=== PATIENT | female | born 1945 | race Caucasian/White ===

== ENCOUNTER → 2016-11-24 | Outpatient (CLI) | payer MEDICARE, MEDICAID ==
[~2016-11-24] MED LIST: ALEN70TA47 PO; ASPI-983 PO; CALC-927 PO; CHOL10003 PO; FENO54TA PO; GABA-486 PO; GLIM4TAB PO; MULT-35 PO; PANT20TA3 PO; ROSU10TA24 PO; SAXA5TAB PO; SERT25TA5 PO; SIMV10TA3 PO; SITA100T12 PO; TRAM50TA2 PO
--- NOTE | 2016-11-24 17:36 | Diagnostic Imaging Report ---
PROCEDURE: CT orbit without. TECHNIQUE: Multiple contiguous axial images were obtained through the facial bones without the use of intravenous contrast. INDICATION: Right eye swelling. FINDINGS: Paranasal sinuses are clear. Globes appear normal. Orbits appear normal. There are no pathologic masses or fluid collections. There are no facial bone fractures seen. IMPRESSION: Unremarkable CT of the orbits. Dictated by: Dictated on workstation # [id number]
== END ==
LOC: RAD 16:47
PROVIDERS: ATTEND Optometrist
DX: H57.8 Other specified disorders of eye and adnexa (principal)
CPT/HCPCS: 70480

== ENCOUNTER → 2017-03-17 | Outpatient (CLI) | payer MEDICARE, MEDICAID ==
[2017-03-17 08:24] LABS: BASOPHILS # (AUTO) 0.1 10^3/uL (0.0-0.1); BASOPHILS % (AUTO) 2 % (0-10); EOSINOPHILS # (AUTO) 0.2 10^3/uL (0.0-0.3); EOSINOPHILS % (AUTO) 3 % (0-10); LYMPHOCYTES # (AUTO) 1.7 X 10^3 (1.0-4.0); LYMPHOCYTES % (AUTO) 23 % (12-44); MEAN CORPUSCULAR HEMOGLOBIN 29 PG (25-34); MEAN CORPUSCULAR HGB CONC 32 G/DL (32-36); MEAN CORPUSCULAR VOLUME 88 FL (80-99); MEAN PLATELET VOLUME 11.7 FL (7.4-10.4); MONOCYTES # (AUTO) 0.7 X 10^3 (0.0-1.0); MONOCYTES % (AUTO) 9 % (0-12); NEUTROPHILS # (AUTO) 4.6 X 10^3 (1.8-7.8); NEUTROPHILS % (AUTO) 63 % (42-75); PLATELET COUNT 321 10^3/uL (130-400); RED BLOOD COUNT 5.32 10^6/uL (4.35-5.85); RED CELL DISTRIBUTION WIDTH 14.4 % (10.0-14.5); WHITE BLOOD COUNT 7.4 10^3/uL (4.3-11.0)
[2017-03-17 08:50] LABS: ALANINE AMINOTRANSFERASE 51 U/L (0-55); ALBUMIN 4.1 GM/DL (3.2-4.5); ANION GAP 7 MMOL/L (5-14); ASPARTATE AMINO TRANSFERASE 35 U/L (5-34); BILIRUBIN,TOTAL 0.6 MG/DL (0.1-1.0); BLOOD UREA NITROGEN 14 MG/DL (7-18); BUN/CREATININE RATIO 19; CALCIUM 10.1 MG/DL (8.5-10.1); CARBON DIOXIDE 28 MMOL/L (21-32); CHLORIDE 108 MMOL/L (98-107); CHOLESTEROL 279 MG/DL (< 200); CREATININE SERUM 0.74 MG/DL (0.60-1.30); DIRECT LDL 208 MG/DL (1-129); GFR ESTIMATED > 60; GLUCOSE 166 MG/DL (70-105); SODIUM 143 MMOL/L (135-145); TOTAL PROTEIN 7.5 GM/DL (6.4-8.2); TRIGLYCERIDES 218 MG/DL (<150); VLDL CHOLESTEROL 44 MG/DL (5-40)
== END ==
LOC: LAB 07:26
PROVIDERS: ATTEND Family Medicine
DX: E11.9 Type 2 diabetes mellitus without complications (principal); E78.2 Mixed hyperlipidemia
CPT/HCPCS: 36415; 80053; 80061; 83036; 85025

== ENCOUNTER → 2017-05-05 | Outpatient (CLI) | payer MEDICARE, MEDICAID ==
--- NOTE | 2017-05-05 12:31 | Diagnostic Imaging Report ---
PROCEDURE: MRI right joint lower extremity without contrast. TECHNIQUE: Multiplanar, multisequence non contrast-enhanced MRI of the right lower extremity was accomplished. INDICATION: Right hip pain. COMPARISON: None available. FINDINGS: No fracture or osteonecrosis of the proximal right femur. No hip effusion. Multifocal full-thickness chondral loss throughout the hip is characterized predominantly by subcortical cystic change in the posterior humeral head in the anterior aspect of the acetabulum. Additionally, a ring of osteophytes around femoral head. Evaluation of the acetabular labrum is limited without intraarticular contrast. Allowing for this, no paralabral cyst. There is likely degenerative macerated tearing of the acetabular labrum. The right iliopsoas, gluteus medius and minimus and proximal hamstring complexes are normal. No abnormality of the right adductor musculature. No peritrochanteric fluid collection to indicate bursitis. A large [id number] imaging of the pelvis was performed for comparison purposes. This demonstrates multifocal full-thickness chondral loss within the left hip as well. No evidence of pelvic insufficiency fracture. No osteonecrosis or fracture of the proximal left femur. IMPRESSION: 1. Moderate osteoarthritis of the right hip with multifocal full-thickness chondromalacia. 2. No myotendinous abnormality about the right hip to explain patient's pain. 3. No trochanteric bursitis. Dictated by: Dictated on workstation # [id number]
== END ==
LOC: RAD 09:35
PROVIDERS: ATTEND Nurse Practitioner Family
DX: M16.11 Unilateral primary osteoarthritis, right hip (principal)
CPT/HCPCS: 73721

== ENCOUNTER → 2017-10-15 | Outpatient (CLI) | payer MEDICARE, MEDICAID ==
[~2017-10-15] MED LIST changes: -ROSU10TA24 PO; +ROSU10TA26 PO
[2017-10-15 16:57] LABS: ALBUMIN 4.2 GM/DL (3.2-4.5); BILIRUBIN,DIRECT 0.1 MG/DL (0.0-0.3); BILIRUBIN,INDIRECT 0.2 MG/DL; BILIRUBIN,TOTAL 0.3 MG/DL (0.1-1.0); TOTAL PROTEIN 7.4 GM/DL (6.4-8.2)
== END ==
LOC: LAB 16:20
PROVIDERS: ATTEND Podiatrist Foot & Ankle Surgery
DX: B35.1 Tinea unguium (principal)
CPT/HCPCS: 36415; 80076

== ENCOUNTER 2018-03-08 06:06 | Outpatient (CLI) | payer MEDICARE, MEDICAID ==
[~2018-03-08] VITALS: Ht 157.5 cm; Wt 68.0 kg
[~2018-03-08 06:06] MED LIST changes: -ROSU10TA26 PO; +ROSU10TA27 PO
[2018-03-08] MEDS ORDERED: L.AC1CAP6 PO (14:10)
[2018-03-08] MEDS ORDERED: METF500T5 PO ×2 (14:10)
[2018-03-08] MEDS ORDERED: ATOR10TA66 PO (14:10)
== END 2018-03-08 14:22 ==
LOC: PREOP 06:06
PROVIDERS: ATTEND Surgery
DX: Z01.818 Encounter for other preprocedural examination (principal)

== ENCOUNTER 2018-03-15 08:14 | Day surgery (SDC) | payer MEDICARE, MEDICAID ==
[~2018-03-15] VITALS: Ht 157.5 cm; Wt 68.0 kg
[~2018-03-15 08:14] MED LIST changes: +ATOR10TA66 PO; +L.AC1CAP6 PO; +METF500T5 PO
[2018-03-15 08:20] VITALS: BP 167/86
--- NOTE | 2018-03-15 08:28 | Progress Note-Pre Operative ---
Pre-Operative Progress Note H&P Reviewed The H&P was reviewed, patient examined and no changes noted. Date Seen by Provider: Mar 15, 2018 Time Seen by Provider: : Date H&P Reviewed: Mar 15, 2018 Time H&P Reviewed: : Pre-Operative Diagnosis: screening colonoscopy INGRID SANTACRUZ DO Mar 15, 2018 08:28
[2018-03-15] MEDS ORDERED: D5 LR IV SOLUTION 1,000 ML IV SCH (08:45)
[2018-03-15] MEDS ORDERED: LACTATED RINGERS 1,000 ML IV ONE (08:46)
[2018-03-15] MEDS ORDERED: LACTATED RINGERS 1,000 ML IV STA (08:49)
[2018-03-15] MEDS ORDERED: PROPOFOL INJECTION 50 ML IV ONE (09:46)
[2018-03-15] MEDS ORDERED: MIDAZOLAM 2 MG/2 ML (VERSED) VIAL ONE (09:46)
--- NOTE | 2018-03-15 10:48 | Anesthesia-General Post-Op ---
MAC Patient Condition Mental Status/LOC: Same as Preop Cardiovascular: Satisfactory Nausea/Vomiting: Absent Respiratory: Satisfactory Pain: Controlled Complications: Absent Post Op Complications Complications None Follow Up Care/Instructions Patient Instructions None needed. Anesthesiology Discharge Order Discharge Order Patient is doing well, no complaints, stable vital signs, no apparent adverse anesthesia problems. No complications reported per nursing. ANN NUÑEZ CRNA Mar 15, 2018 10:48
--- NOTE | 2018-03-15 10:52 | Discharge Inst-Simple/Standard ---
Discharge Inst-Standard Patient Instructions/Follow Up Plan of Care/Instructions/FU: repeat colonoscopy in 10 year unless family history of colon cancer 5 years. If any issues before that be seen at that time. Activity as Tolerated: Yes Discharge Diet: Regular Diet INGRID SANTACRUZ DO Mar 15, 2018 10:51
--- NOTE | 2018-03-15 10:54 | Progress Note-Post Operative ---
Post-Operative Progess Note Surgeon (s)/Washing Machine Operator (s) Surgeon INGRID SANTACRUZ DO Washing Machine Operator: na Pre-Operative Diagnosis screening colonoscopy Post-Operative Diagnosis normal colon Procedure & Operative Findings Date of Procedure 03/15/18 Procedure Performed/Findings colonoscopy Anesthesia Type per sewing machine adjuster Estimated Blood Loss Estimated blood loss (mL): none Specimens/Packing Specimens Removed na INGRID SANTACRUZ DO Mar 15, 2018 10:54
[2018-03-15 11:05] VITALS: BP 145/66
[2018-03-15 11:28] VITALS: BP 157/69
[2018-03-15 11:30] VITALS: BP 157/69
--- NOTE | 2018-03-15 21:44 | OPERATIVE REPORT ---
DATE OF SERVICE: 03/15/2018 PREOPERATIVE DIAGNOSIS: Screening colonoscopy. POSTOPERATIVE DIAGNOSIS: Normal colon. PROCEDURE: Colonoscopy. SURGEON: Ingrid Arias DO ANESTHESIA: Per SLABBER. ESTIMATED BLOOD LOSS: None. COMPLICATIONS: None. INDICATIONS: The patient is a 72-year-old female needing screening colonoscopy. She understands risks and benefits of procedure and wished to proceed with procedure. Consent was signed in the chart. DESCRIPTION OF PROCEDURE: The patient was taken to the endoscopy suite, placed in the left lateral recumbent position. Timeout was performed. Digital rectal exam was performed. There were no palpable polyps, mass or ulcerations. The scope was inserted in the rectum, advanced all the way to the cecum with minimal difficulty. Prep was adequate. Scope was then slowly retracted back. There were no polyps, mass or ulcerations within the cecum, ascending, transverse, descending and sigmoid colon. Once in the rectum, scope was also retroflexed noting some slight hemorrhoidal disease. Scope was returned to its normal position, slowly withdrawn until completely removed. The patient tolerated the procedure well without any complications. She was taken to recovery room in stable condition. RECOMMENDATIONS: The patient will need repeat colonoscopy in 10 years unless family history of colon cancer, which will then be in 5 years. If she has any problems prior to that, she should be reevaluated at that time. Job ID: [id number] DocumentID: [id number] Dictated Date: 03/15/2018 10:56:12 Gun Barrel Finisher Date: 03/15/2018 15:50:41 Dictated By: INGRID ARIAS DO
== END 2018-03-15 11:30 | disposition home or self-care (01) ==
LOC: ENDO 08:14
PROVIDERS: ATTEND Surgery
DX: Z12.11 Encounter for screening for malignant neoplasm of colon (principal); Z86.010 Personal history of colon polyps; E11.9 Type 2 diabetes mellitus without complications; Z79.82 Long term (current) use of aspirin; Z79.84 Long term (current) use of oral hypoglycemic drugs

== ENCOUNTER 2019-09-26 09:22 | Emergency (ER) | payer MEDICARE, MEDICAID ==
[~2019-09-26] VITALS: Ht 157 cm; Wt 70.0 kg
[~2019-09-26 09:22] MED LIST changes: -ALEN70TA47 PO; +ALEN70TA5 PO; -GLIM4TAB PO; +GLIM4TAB3 PO; +METF-397 PO; -METF500T5 PO; -ROSU10TA27 PO; +ROSU10TA28 PO; +SIMV10TA26 PO; -SIMV10TA3 PO; -TRAM50TA2 PO; +TRM50T PO
--- NOTE | 2019-09-26 09:49 | ED Abdominal Pain ---
General Chief Complaint: Abdominal/GI Problems Stated Complaint: DEHYDRATION Source of Information: Patient Exam Limitations: No Limitations History of Present Illness Date Seen by Provider: Sep 26, 2019 Time Seen by Provider: 09:23 Initial Comments Here by EMS with report of diarrhea overnight and concerns of dehydration. Patient apparently had diarrhea 2-3 days ago and was doing a little better but then had several episodes of diarrhea overnight. She felt weak and called her insurance nurse line who recommended she go to the emergency department. EMS was summoned. Vital signs okay with mildly positive orthostatic findings with slight increase in heart rate with standing. Denies blood in her urine or stool. Has left lower quadrant abdominal pain that is intermittent but much worse over the last few days. Timing/Duration: 2-3 Days, Changing Over Time, Getting Worse, Intermittent Severity/Quality: Moderate, Aching Location: LLQ Radiation: No Radiation Activities at Onset: None Modifying Factors: Improves With Defecating; Worsens With Movement Associated Symptoms: Back Pain (chronic); No Chest Pain, No Fever/Chills, No Nausea/Vomiting, No Shortness of Air; Weakness Allergies and Home Medications Allergies Coded Allergies: Iodinated Contrast- Oral and IV Dye (Verified Allergy, Unknown, 03/15/18) codeine (Verified Allergy, Unknown, 03/15/18) metformin (Verified Allergy, Unknown, 03/15/18) Home Medications Alendronate Sodium 70 Mg Tablet, 70 MG PO Mo, (Reported) Aspirin 81 Mg Tablet.dr, 81 MG PO HS, (Reported) Atorvastatin Calcium 10 Mg Tablet, 10 MG PO HS, (Reported) Calcium Carb/Mag Ox/Zinc Sulf 1 Each Tablet, 1 TAB PO HS, (Reported) Cholecalciferol (Vitamin D3) 1,000 Unit Tablet, 1,000 UNIT PO HS, (Reported) Gabapentin 100 Mg Capsule, 100 MG PO BID, (Reported) Glimepiride 4 Mg Tablet, 4 MG PO DAILY, (Reported) L.acidoph & Paracasei,B.lactis 1 Each Capsule, 1 EACH PO DAILY, (Reported) Metformin HCl 500 Mg Tablet, 1,000 MG PO AM, (Reported) Metformin HCl 500 Mg Tablet, 500 MG PO PM, (Reported) Multivitamin 1 Each Tablet, 1 TAB PO HS, (Reported) Pantoprazole Sodium 20 Mg Tablet.dr, 20 MG PO BID, (Reported) Saxagliptin HCl 5 Mg Tablet, 5 MG PO DAILY, (Reported) Sertraline HCl 25 Mg Tablet, 25 MG PO BID, (Reported) Patient Home Medication List Home Medication List Reviewed: Yes Review of Systems Review of Systems Constitutional: see HPI; No chills, No fever EENTM: No Symptoms Reported Respiratory: No Symptoms Reported Cardiovascular: No Symptoms Reported Gastrointestinal: See HPI Genitourinary: No Symptoms Reported Musculoskeletal: see HPI Skin: no symptoms reported Psychiatric/Neurological: No Symptoms Reported All Other Systems Reviewed Negative Unless Noted: Yes Past Fkpspmk-Zhkpmm-Ghytlu Hx Past Med/Social Hx: Reviewed Nursing Past Med/Soc Hx Patient Social History Alcohol Use: Denies Use Recreational Drug Use: No Smoking Status: Never a Smoker Recent Hopitalizations: No Immunizations Up To Date Date of Pneumonia Vaccine: May 01, 2014 Seasonal Allergies Seasonal Allergies: Yes Past Medical History Surgeries: Yes Hysterectomy, Orthopedic Respiratory: No Cardiac: Yes High Cholesterol, Hypertension Neurological: No Reproductive Disorders: No Sexually Transmitted Disease: No HIV/AIDS: No Gastrointestinal: Yes Gastroesophageal Reflux Musculoskeletal: Yes Chronic Back Pain Endocrine: Yes Diabetes, Non-Insulin dep Psychosocial: Yes Adverse Reaction/Blood Tranf: No Family Medical History No Pertinent Family Hx Physical Exam Vital Signs Vital Signs - First Documented 09/26/19 09:22 Temp 36.3 Pulse 88 Resp 22 B/P (MAP) 145/75 (98) Pulse Ox 96 O2 Delivery Nasal Cannula Capillary Refill : Height/Weight/BMI Height: 5'2.00" Weight: 150lbs. 0.0oz. 68.354906gi; 27.4 BMI Method: General Appearance: WD/WN, no apparent distress HEENT: PERRL/EOMI, pharynx normal Neck: full range of motion, supple Respiratory: lungs clear, normal breath sounds Cardiovascular: regular rate, rhythm, no murmur Gastrointestinal: normal bowel sounds, soft, tenderness (left lower quadrant) Extremities: non-tender, normal inspection, no pedal edema Back: normal inspection, no CVA tenderness Neurologic/Psychiatric: alert, oriented x 3 Skin: normal color, warm/dry Progress/Results/Core Measures Results/Orders Lab Results Laboratory Tests Test 09/26/19 09:40 09/26/19 09:49 Range/Units Urine Color YELLOW Urine Clarity CLEAR Urine pH 7.0 5-9 Urine Specific [place] 1.015 L 1.016-1.022 Urine Protein NEGATIVE NEGATIVE Urine Glucose (UA) NEGATIVE NEGATIVE Urine Ketones NEGATIVE NEGATIVE Urine Nitrite NEGATIVE NEGATIVE Urine Bilirubin NEGATIVE NEGATIVE Urine Urobilinogen 0.2 < = 1.0 MG/DL Urine Leukocyte Esterase 2+ H NEGATIVE Urine RBC (Auto) NEGATIVE NEGATIVE Urine RBC RARE /HPF Urine WBC 2-5 /HPF Urine Squamous Epithelial Cells RARE /HPF Urine Crystals NONE /LPF Urine Bacteria TRACE /HPF Urine Casts NONE /LPF Urine Mucus NEGATIVE /LPF Urine Culture Indicated YES White Blood Count 7.9 4.3-11.0 10^3/uL Red Blood Count 4.34 L 4.35-5.85 10^6/uL Hemoglobin 12.3 11.5-16.0 G/DL Hematocrit 38 35-52 % Mean Corpuscular Volume 86 80-99 FL Mean Corpuscular Hemoglobin 28 25-34 PG Mean Corpuscular Hemoglobin Concent 33 32-36 G/DL Red Cell Distribution Width 14.4 10.0-14.5 % Platelet Count 299 130-400 10^3/uL Mean Platelet Volume 11.4 H 7.4-10.4 FL Neutrophils (%) (Auto) 69 42-75 % Lymphocytes (%) (Auto) 19 12-44 % Monocytes (%) (Auto) 8 0-12 % Eosinophils (%) (Auto) 3 0-10 % Basophils (%) (Auto) 1 0-10 % Neutrophils # (Auto) 5.5 1.8-7.8 X 10^3 Lymphocytes # (Auto) 1.5 1.0-4.0 X 10^3 Monocytes # (Auto) 0.7 0.0-1.0 X 10^3 Eosinophils # (Auto) 0.2 0.0-0.3 10^3/uL Basophils # (Auto) 0.1 0.0-0.1 10^3/uL Sodium Level 143 135-145 MMOL/L Potassium Level 3.6 3.6-5.0 MMOL/L Chloride Level 110 H 98-107 MMOL/L Carbon Dioxide Level 27 21-32 MMOL/L Anion Gap 6 5-14 MMOL/L Blood Urea Nitrogen 13 7-18 MG/DL Creatinine 0.82 0.60-1.30 MG/DL Estimat Glomerular Filtration Rate > 60 BUN/Creatinine Ratio 16 Glucose Level 184 H 70-105 MG/DL Calcium Level 9.7 8.5-10.1 MG/DL Corrected Calcium 9.8 8.5-10.1 MG/DL Magnesium Level 1.1 *L 1.6-2.4 MG/DL Total Bilirubin 0.5 0.1-1.0 MG/DL Aspartate Amino Transf (AST/SGOT) 16 5-34 U/L Alanine Aminotransferase (ALT/SGPT) 19 0-55 U/L Alkaline Phosphatase 79 40-136 U/L C-Reactive Protein High Sensitivity 0.23 0.00-0.50 MG/DL Total Protein 6.9 6.4-8.2 GM/DL Albumin 3.9 3.2-4.5 GM/DL Lipase 31 8-78 U/L My Orders Orders - RAVINDRA LEDBETTER MD Cbc With Automated Diff (09/26/19 09:35) Comprehensive Metabolic Panel (09/26/19 09:35) Hs C Reactive Protein (09/26/19 09:35) Lipase (09/26/19 09:35) Magnesium (09/26/19 09:35) Ua Culture If Indicated (09/26/19 09:35) Ct Abdomen/Pelvis Wo (09/26/19 09:35) Urine Culture (09/26/19 09:40) Magnesium 1 Gm/100 Ml Ivpb (Magnesium Padron (09/26/19 11:00) Magnesium 1 Gm/100 Ml Ivpb (Magnesium Padron (09/26/19 11:01) Medications Given in ED Current Medications Medications Dose Ordered Sig/Hceryl Route Start Time Stop Time Status Last Admin Dose Admin Magnesium Sulfate/ Dextrose 100 ml @ 100 mls/hr ONCE ONCE IV 09/26/19 11:00 09/26/19 11:59 DC 09/26/19 11:14 100 MLS/HR Vital Signs/I&O 09/26/19 09:22 Temp 36.3 Pulse 88 Resp 22 B/P (MAP) 145/75 (98) Pulse Ox 96 O2 Delivery Nasal Cannula Progress Progress Note : Progress Note Seen and evaluated. IV by EMS. Labs, UA and CT abdomen pelvis without contrast ordered. Monitor patient. 1045: Mag noted to be low. Magnesium 1 g IV ordered. Pending CT. Overall doing better. Monitor patient. 1153: Patient overall doing better. Magnesium isn't using currently. CT negative. Tolerating by mouth fluids. Patient was previously on magnesium at stopped it due to diarrhea. She follows with Dr. Vergara and I have instructed her to follow with him this week. I will send a copy of the chart to his office. Will discharge as soon as magnesium complete. Discharge instructions given. Patient verbalize understanding instructions and agreement with plan. Diagnostic Imaging Diagonstic Imaging: CT Plain Films/CT/US/NM/MRI: abdomen, pelvis Comments [facility], [place] NAME: DAVID ALEXANDRA [facility] REC#: [id number] PT STATUS: REG ER : 1945 PHYSICIAN: RAVINDRA LEDBETTER MD ADMIT DATE: 09/26/19/ER Draft Date of Exam:09/26/19 CT ABDOMEN/PELVIS WO PROCEDURE: CT abdomen and pelvis without contrast. TECHNIQUE: Multiple contiguous axial images were obtained through the abdomen and pelvis without the use of intravenous contrast. Auto Exposure Controls were utilized during the CT exam to meet ALARA standards for radiation dose reduction. INDICATION: Diarrhea. Dehydration. COMPARISON: 05/19/2016. FINDINGS: Included portions of the lung bases are clear. CT ABDOMEN: Small hiatal hernia is noted. There are a few scattered colonic diverticula, but no CT evidence of acute diverticulitis. Small bowel loops are nondistended. Normal appendix cannot be adequately identified, but there is no pericecal inflammation. The kidneys, adrenal glands, spleen, pancreas, and liver have an unremarkable noncontrast CT appearance. There is no loculated fluid collection, free fluid, or free air within the abdomen. No abnormal mesenteric or retroperitoneal adenopathy is seen. Moderate scattered calcified aortic and arterial atherosclerosis is noted. Osseous structures show no acute abnormalities. CT PELVIS: Urinary bladder is unopacified and minimally distended. No calculi are seen within the urinary bladder. There is no loculated fluid collection, free fluid, or free air. No abnormal adenopathy is identified. Osseous structures show no acute abnormalities. IMPRESSION: 1. No acute abnormalities are seen within the abdomen or pelvis. 2. Few scattered colonic diverticula, but no CT evidence of acute diverticulitis. Dictated on workstation # [id number] Dict: 09/26/19 1103 Trans: 09/26/19 1109 [id number] Interpreted by: SAFIA MURILLO MD Electronically signed by: Departure Impression Primary Impression: Diarrhea Qualified Codes: R19.7 - Diarrhea, unspecified Additional Impressions: Acute dehydration Hypomagnesemia Disposition: 01 HOME, SELF-CARE Condition: Improved Departure-Patient Inst. Decision time for Depature: 11:53 Referrals: MARVIN VAZQUEZ DO (PCP) Primary Care Physician FIDE REYES APRN (Family) Primary Care Physician Patient Instructions: Acute Abdomen (Belly Pain), Adult (DC), Low Magnesium Level (DC), Dehydration, Adult (DC), Diarrhea in Adolescents and Adults Add. Discharge Instructions: All discharge instructions reviewed with patient and/or family. Voiced understanding. Call today for appointment with your doctor this week. Clearly correlated diet for the next 24 hours and then advance as tolerated. You should consider restart ing magnesium but he may discuss this with her doctor. Return for worse pain, fever, vomiting, weakness, breathing problems or other concerns as needed. Copy Copies To 1: KAL VERGARA MD, TIMOTHY D MD Sep 26, 2019 09:49
[2019-09-26 09:51] LABS: BILIRUBIN,URINE NEGATIVE (NEGATIVE); CLARITY,URINE CLEAR; COLOR,URINE YELLOW; GLUCOSE, URINE (UA) NEGATIVE (NEGATIVE); KETONES,URINE NEGATIVE (NEGATIVE); LEUKOCYTE ESTERASE ,URINE 2+ (NEGATIVE); NITRITE,URINE NEGATIVE (NEGATIVE); PROTEIN,URINE NEGATIVE (NEGATIVE)
[2019-09-26 09:57] LABS: BASOPHILS # (AUTO) 0.1 10^3/uL (0.0-0.1); BASOPHILS % (AUTO) 1 % (0-10); EOSINOPHILS # (AUTO) 0.2 10^3/uL (0.0-0.3); EOSINOPHILS % (AUTO) 3 % (0-10); HEMATOCRIT 38 % (35-52); HEMOGLOBIN 12.3 G/DL (11.5-16.0); LYMPHOCYTES # (AUTO) 1.5 X 10^3 (1.0-4.0); LYMPHOCYTES % (AUTO) 19 % (12-44); MEAN CORPUSCULAR HEMOGLOBIN 28 PG (25-34); MEAN CORPUSCULAR HGB CONC 33 G/DL (32-36); MEAN CORPUSCULAR VOLUME 86 FL (80-99); MEAN PLATELET VOLUME 11.4 FL (7.4-10.4); MONOCYTES # (AUTO) 0.7 X 10^3 (0.0-1.0); MONOCYTES % (AUTO) 8 % (0-12); NEUTROPHILS # (AUTO) 5.5 X 10^3 (1.8-7.8); NEUTROPHILS % (AUTO) 69 % (42-75); PLATELET COUNT 299 10^3/uL (130-400); RED CELL DISTRIBUTION WIDTH 14.4 % (10.0-14.5); WHITE BLOOD COUNT 7.9 10^3/uL (4.3-11.0)
[2019-09-26 10:02] LABS: BACTERIA,URINE TRACE /HPF; RBC,URINE RARE /HPF; SQUAMOUS EPITHELIAL CELL,UR RARE /HPF
[2019-09-26 10:19] LABS: ALANINE AMINOTRANSFERASE 19 U/L (0-55); ALBUMIN 3.9 GM/DL (3.2-4.5); ALKALINE PHOSPHATASE 79 U/L (40-136); BILIRUBIN,TOTAL 0.5 MG/DL (0.1-1.0); BUN/CREATININE RATIO 16; CALCIUM 9.7 MG/DL (8.5-10.1); CARBON DIOXIDE 27 MMOL/L (21-32); CHLORIDE 110 MMOL/L (98-107); CREATININE SERUM 0.82 MG/DL (0.60-1.30); GFR ESTIMATED > 60; GLUCOSE 184 MG/DL (70-105); LIPASE 31 U/L (8-78); POTASSIUM 3.6 MMOL/L (3.6-5.0); SODIUM 143 MMOL/L (135-145); TOTAL PROTEIN 6.9 GM/DL (6.4-8.2)
--- NOTE | 2019-09-26 10:44 | NUR ---
SEE LIST FOR CURRENT MEDS
[2019-09-26 10:47] LABS: MAGNESIUM 1.1 MG/DL (1.6-2.4)
[2019-09-26] MEDS ORDERED: MAGNESIUM 1 GM/100 ML IVPB 100 ML IV ONE ×2 (11:00→11:01)
--- NOTE | 2019-09-26 11:13 | Diagnostic Imaging Report ---
PROCEDURE: CT abdomen and pelvis without contrast. TECHNIQUE: Multiple contiguous axial images were obtained through the abdomen and pelvis without the use of intravenous contrast. Auto Exposure Controls were utilized during the CT exam to meet ALARA standards for radiation dose reduction. INDICATION: Diarrhea. Dehydration. COMPARISON: 05/19/2016. FINDINGS: Included portions of the lung bases are clear. CT ABDOMEN: Small hiatal hernia is noted. There are a few scattered colonic diverticula, but no CT evidence of acute diverticulitis. Small bowel loops are nondistended. Normal appendix cannot be adequately identified, but there is no pericecal inflammation. The kidneys, adrenal glands, spleen, pancreas, and liver have an unremarkable noncontrast CT appearance. There is no loculated fluid collection, free fluid, or free air within the abdomen. No abnormal mesenteric or retroperitoneal adenopathy is seen. Moderate scattered calcified aortic and arterial atherosclerosis is noted. Osseous structures show no acute abnormalities. CT PELVIS: Urinary bladder is unopacified and minimally distended. No calculi are seen within the urinary bladder. There is no loculated fluid collection, free fluid, or free air. No abnormal adenopathy is identified. Osseous structures show no acute abnormalities. IMPRESSION: 1. No acute abnormalities are seen within the abdomen or pelvis. 2. Few scattered colonic diverticula, but no CT evidence of acute diverticulitis. Dictated by: Dictated on workstation # [id number]
[2019-09-26 12:23] VITALS: BP 141/80
== END 2019-09-26 12:23 | disposition home or self-care (01) ==
LOC: EDUNIT# 09:23 → ER 09:24
DX: R19.7 Diarrhea, unspecified (principal); E86.0 Dehydration; E83.42 Hypomagnesemia; I10 Essential (primary) hypertension; E78.00 Pure hypercholesterolemia, unspecified; E11.9 Type 2 diabetes mellitus without complications; K21.9 Gastro-esophageal reflux disease without esophagitis; Z91.041 Radiographic dye allergy status; Z88.5 Allergy status to narcotic agent; Z88.8 Allergy status to other drugs, medicaments and biological substances; Z79.82 Long term (current) use of aspirin; Z79.84 Long term (current) use of oral hypoglycemic drugs
CPT/HCPCS: 36415; 74176; 80053; 81000; 83690; 83735; 85025; 86141; 87077; 87088

== ENCOUNTER → 2019-10-03 | Outpatient (CLI) | payer MEDICARE, MEDICAID ==
[2019-10-03 12:53] LABS: ALANINE AMINOTRANSFERASE 21 U/L (0-55); ALBUMIN 4.3 GM/DL (3.2-4.5); ALKALINE PHOSPHATASE 76 U/L (40-136); BILIRUBIN,TOTAL 0.4 MG/DL (0.1-1.0); BUN/CREATININE RATIO 20; CALCIUM 10.7 MG/DL (8.5-10.1); CARBON DIOXIDE 29 MMOL/L (21-32); CHLORIDE 104 MMOL/L (98-107); CHOLESTEROL 199 MG/DL (< 200); CREATININE SERUM 0.83 MG/DL (0.60-1.30); GFR ESTIMATED > 60; GLUCOSE 111 MG/DL (70-105); HDL CHOLESTEROL 54 MG/DL (40-60); MAGNESIUM 1.4 MG/DL (1.6-2.4); POTASSIUM 3.5 MMOL/L (3.6-5.0); SODIUM 141 MMOL/L (135-145); TOTAL PROTEIN 7.8 GM/DL (6.4-8.2); TRIGLYCERIDES 216 MG/DL (<150); VLDL CHOLESTEROL 43 MG/DL (5-40)
== END ==
LOC: LAB 12:12
PROVIDERS: ATTEND Family Medicine
DX: E11.9 Type 2 diabetes mellitus without complications (principal); E78.5 Hyperlipidemia, unspecified; E83.42 Hypomagnesemia
CPT/HCPCS: 36415; 80053; 80061; 83036; 83735

== ENCOUNTER → 2020-05-24 | Outpatient (CLI) | payer MEDICARE, MEDICAID ==
[~2020-05-24] MED LIST changes: +ASPI-1238 PO; -ASPI-983 PO; -GLIM4TAB3 PO; +GLIM4TAB5 PO; +PANT20TA18 PO; -PANT20TA3 PO
--- NOTE | 2020-05-24 13:42 | Diagnostic Imaging Report ---
INDICATION: Right breast pain and right breast lump. No prior studies are available for comparison. 2-D and 3-D bilateral diagnostic mammography was performed. A BB markers were placed at the area of pain in the inner right breast as well as an area of lump in the inferior right breast. In addition, additional views of the left breast were obtained of an area of density in the lateral left breast. This included rolled CC, spot compression CC and 90 degree lateral views. Scattered fibroglandular densities are identified bilaterally. There is a circumscribed density in the inferior right breast at the area of palpable abnormality. This has benign features and may represent small cyst. No abnormality in the medial right breast is seen at the area of pain. Left breast additional views are unremarkable. There is no mass or suspicious microcalcifications. Axillae are unremarkable. IMPRESSION: BI-RADS 0 1. Unremarkable left breast. 2. Circumscribed benign appearing nodule inferior right breast in the area of palpable abnormality. Directed sonographic interrogation of this area as well as the area of pain in the medial right breast is recommended and will be performed today. ACR BI-RADS Category 0: Incomplete. (Needs additional imaging evaluation). Result letter will be mailed to the patient. Note: At least 10% of breast cancer is not imaged by mammography. Dictated by: Dictated on workstation # [id number]
--- NOTE | 2020-05-24 15:46 | Diagnostic Imaging Report ---
INDICATION: Right breast pain and right breast lump. CORRELATION is made with diagnostic mammogram earlier same day. Sonographic interrogation of the area of pain in the right breast was performed. This corresponds to the 2-3 o'clock location of the right breast. No sonographic abnormality is identified. No solid or cystic mass is identified. In addition, area of palpable lump in the inferior right breast was evaluated. There is a circumscribed hypoechoic nodule just below the skin surface measuring 8 mm x 7 mm x 8 mm. This accounts for the palpable and mammographic density and most likely represents a sebaceous cyst. No internal vascularity is seen. IMPRESSION: BI-RADS Category 2. 1. No sonographic abnormality is identified at the area of pain in the medial right breast. 2. Circumscribed hypoechoic nodule 6:30 o'clock location right breast just below the skin surface accounting for the palpable and mammographic abnormality. This most likely represents a sebaceous cyst. ACR BI-RADS Category 2: Benign findings. Result letter will be mailed to the patient. Note: At least 10% of breast cancer is not imaged by mammography. Dictated by: Dictated on workstation # [id number]
== END ==
LOC: RAD 13:15
PROVIDERS: ATTEND Nurse Practitioner
DX: N63.13 Unspecified lump in the right breast, lower outer quadrant (principal)
CPT/HCPCS: 76642; 77066; G0279; 77062

== ENCOUNTER 2020-06-21 05:30 | Outpatient (RCR) | payer MEDICARE, MEDICAID ==
[~2020-06-21] VITALS: Ht 157 cm; Wt 70.0 kg
[~2020-06-21 05:30] MED LIST changes: -ALEN70TA5 PO; +ALEN70TA69 PO; +CLC600T PO; +GLIM2TAB4 PO; +LINA5TAB PO; +MULT-1136 PO; +SERT50TA9 PO
== END 2020-06-21 11:11 | disposition home or self-care (01) ==
LOC: PREOP 05:30
PROVIDERS: ATTEND Surgery
DX: Z01.812 Encounter for preprocedural laboratory examination (principal); K22.70 Barrett's esophagus without dysplasia; R19.5 Other fecal abnormalities; Z20.828 Contact with and (suspected) exposure to other viral communicable diseases
CPT/HCPCS: 87635

== ENCOUNTER 2020-06-25 10:14 | Day surgery (SDC) | payer MEDICARE, MEDICAID ==
[2020-06-25] VITALS (7 sets, daily range): BP systolic 96–139; BP diastolic 53–80
[~2020-06-25] VITALS: Ht 157 cm; Wt 70.0 kg
[2020-06-25] MEDS ORDERED: LACTATED RINGERS 1,000 ML IV ONE (10:22)
[2020-06-25] MEDS ORDERED: LACTATED RINGERS 1,000 ML IV STA (10:24)
[2020-06-25] MEDS ORDERED: HURRICAINE EXT TUBE (BENZOCAINE) XX PRN (10:30)
[2020-06-25] MEDS ORDERED: HURRICAINE EXT TUBE (BENZOCAINE) ONE (11:08)
[2020-06-25] MEDS ORDERED: PROPOFOL INJECTION 50 ML IV ONE ×2 (11:20→11:54)
--- NOTE | 2020-06-25 12:25 | Progress Note-Post Operative ---
Post-Operative Progess Note Surgeon (s)/Radio Engineering Teacher (s) Surgeon INGRID SANTACRUZ DO Radio Engineering Teacher: na Pre-Operative Diagnosis hx orourke's, fecal incontinence Post-Operative Diagnosis hiatal hernia, sigmoid polyp Procedure & Operative Findings Date of Procedure 06/25/20 Procedure Performed/Findings egd c biopsies, colonoscopy c hot bx polpectomy Anesthesia Type per [facility] Estimated Blood Loss Estimated blood loss (mL): none Specimens/Packing Specimens Removed ge, sigmoid polyp INGRID SANTACRUZ DO Jun 25, 2020 12:25
--- NOTE | 2020-06-25 12:26 | Discharge Inst-Simple/Standard ---
Discharge Inst-Standard Patient Instructions/Follow Up Plan of Care/Instructions/FU: 2 weeks Hugo Activity as Tolerated: Yes Discharge Diet: Regular Diet (high fiber) INGRID SANTACRUZ DO Jun 25, 2020 12:26
--- NOTE | 2020-06-25 14:22 | Anesthesia-General Post-Op ---
MAC Patient Condition Mental Status/LOC: Same as Preop Cardiovascular: Satisfactory Nausea/Vomiting: Absent Respiratory: Satisfactory Pain: Controlled Complications: Absent Post Op Complications Complications None Follow Up Care/Instructions Patient Instructions None needed. Anesthesiology Discharge Order Discharge Order Patient was seen after the procedure and she was doing well, no complaints, stable vital signs, no apparent adverse anesthesia problems. REAGAN ARENAS DO Jun 25, 2020 14:22
--- NOTE | 2020-06-25 22:33 | OPERATIVE REPORT ---
DATE OF SERVICE: PREOPERATIVE DIAGNOSES: History of West's, fecal incontinence. POSTOPERATIVE DIAGNOSES: Hiatal hernia, sigmoid polyp. PROCEDURE: EGD with biopsies, colonoscopy with hot biopsy polypectomy. SURGEON: Ingrid Arias DO ANESTHESIA: Per MDA. ESTIMATED BLOOD LOSS: None. COMPLICATIONS: None. INDICATIONS: The patient is a 74-year-old female with history of West's and having fecal incontinence. She understands risks and benefits of procedure and wished to proceed with procedures. Consent was signed in the chart. DESCRIPTION OF PROCEDURE: The patient was taken to the endoscopy suite, placed in left lateral recumbent position. Timeout was performed. Scope was inserted in mouth, down the esophagus, stomach and into the duodenum without difficulty. There were no polyps, masses or ulcerations within the duodenum. Scope was slowly retracted back into the stomach where it was further insufflated. No polyps, masses or ulcerations. Scope was retroflexed noting hiatal hernia, no other pathology. Scope was returned to its normal position, slowly withdrawn to the distal esophagus, very small area suggestive of West's. A 4-quadrant biopsy was obtained. Scope was then slowly retracted back to completely remove noting no other pathology. Digital rectal exam was performed. There was some redundancy of skin consistent at the anus. No palpable polyps, masses or ulcerations. Scope was then inserted in the rectum and advanced all the way to cecum with minimal difficulty. Prep was adequate. Scope was then slowly retracted back. There were no polyps, masses or ulcerations within the cecum, ascending, transverse, descending colon. In the sigmoid colon, a small polyp was present, which hot biopsy polypectomy was performed. Scope was then continuously retracted back into the rectum, where it was also retroflexed noting no other pathology. Scope was returned to its normal position, slowly withdrawn until completely removed. The patient tolerated procedure well without any complications. She was taken to recovery room in stable condition. RECOMMENDATIONS: The patient will try a high fiber diet to see if incontinence improves. The incontinence could be due to the leakage due to the redundancy and skin. We would consider excision. We will discuss these options. We could also try biofeedback. Job ID: [id number] DocumentID: [id number] Dictated Date: 06/25/2020 12:29:13 Outside Plant Technician Date: 06/25/2020 22:33:22 Dictated By: INGRID ARIAS DO
== END 2020-06-25 13:25 | disposition home or self-care (01) ==
LOC: ENDO 10:14
PROVIDERS: ATTEND Surgery
DX: D12.5 Benign neoplasm of sigmoid colon (principal); K21.00 Gastro-esophageal reflux disease with esophagitis, without bleeding; K44.9 Diaphragmatic hernia without obstruction or gangrene; E11.9 Type 2 diabetes mellitus without complications; E78.5 Hyperlipidemia, unspecified; I10 Essential (primary) hypertension; M06.9 Rheumatoid arthritis, unspecified; F32.9 Major depressive disorder, single episode, unspecified; F41.9 Anxiety disorder, unspecified; Z79.84 Long term (current) use of oral hypoglycemic drugs; Z91.041 Radiographic dye allergy status; Z79.899 Other long term (current) drug therapy; Z88.8 Allergy status to other drugs, medicaments and biological substances; Z88.1 Allergy status to other antibiotic agents; Z88.5 Allergy status to narcotic agent
CPT/HCPCS: 82962

== ENCOUNTER → 2020-12-02 | Outpatient (CLI) | payer MEDICARE, MEDICAID ==
[~2020-12-02] MED LIST changes: -ALEN70TA69 PO; +ALEN70TA80 PO; +SERT-412 PO; +SERT-413 PO; -SERT25TA5 PO; -SERT50TA9 PO
== END ==
LOC: LAB 18:15
PROVIDERS: ATTEND Surgery
DX: R19.7 Diarrhea, unspecified (principal)
CPT/HCPCS: 87015; 87045; 87046; 87324; 87328; 87329; 87449; 87493; 87899

== ENCOUNTER 2020-12-13 16:26 | Emergency (ER) | payer MEDICARE, MEDICAID ==
[~2020-12-13] VITALS: Ht 157.5 cm; Wt 71.7 kg
[~2020-12-13 16:26] MED LIST changes: +CALC600T91 PO; -CLC600T PO
--- NOTE | 2020-12-13 16:54 | ED General ---
General Stated Complaint: SEVERAL COVID SYMPTOMS Source of Information: Patient Exam Limitations: No Limitations History of Present Illness Date Seen by Provider: Dec 13, 2020 Time Seen by Provider: 16:35 Initial Comments Patient is a 75-year-old female who presents to the emergency department today with a chief complaint of low-grade fever for the last 3 days and persistent diarrhea. Patient states that she was diagnosed with a colon infection about 3 weeks ago. She states she has persisted in having diarrhea at least once an hour since that time. She states that she feels weak. She states that she was concerned that she would be able to take care of herself at home. She also complains of little sinus congestion with some green nasal secretions and cough in the morning with sneezes. No Covid concerns no Covid contacts that she is aware of. Patient denies any abdominal pain but has a little epigastric discomfort. She states that she has had so much diarrhea that her rectum is bleeding a little bit. She denies burning with urination, dysuria urgency or frequency. Patient states that she called Dr. Arias's office her surgeon who is taking care of her colitis as well as her primary care doctor's office today and they told her that if she was having the low-grade fever that she should come to the emergency room and be evaluated. All other review of systems reviewed and negative except as stated above. Timing/Duration: Constant, Getting Worse (With low-grade fever) Severity: Moderate Associated Systoms: Fever/Chills (Low-grade fever of 99), Malaise Allergies and Home Medications Allergies Coded Allergies: Iodinated Contrast Media (Verified Allergy, Mild, HIVES, 06/18/20) amoxicillin (Verified Allergy, Mild, GI UPSET, 06/18/20) clavulanic acid (Verified Allergy, Mild, GI UPSET, 06/18/20) codeine (Verified Allergy, Mild, N/V, 06/18/20) metformin (Verified Allergy, Mild, GI UPSET, 06/18/20) Home Medications Alendronate Sodium 70 Mg Tablet, 70 MG PO Mo, (Reported) Atorvastatin Calcium 10 Mg Tablet, 10 MG PO HS, (Reported) Calcium Carbonate 600 Mg Tablet, 600 MG PO DAILY, (Reported) Gabapentin 100 Mg Capsule, 100 MG PO BID, (Reported) Glimepiride 2 Mg Tablet, 2 MG PO BID, (Reported) Linagliptin 5 Mg Tablet, 5 MG PO DAILY, (Reported) Metformin HCl 500 Mg Tablet, 1,000 MG PO AM, (Reported) Metformin HCl 500 Mg Tablet, 500 MG PO PM, (Reported) Multivitamin 1 Each Tablet, 1 EACH PO DAILY, (Reported) Pantoprazole Sodium 20 Mg Tablet.dr, 20 MG PO DAILY, (Reported) Sertraline HCl 50 Mg Tablet, 50 MG PO DAILY, (Reported) Patient Home Medication List Home Medication List Reviewed: Yes Review of Systems Review of Systems Constitutional: see HPI, malaise, weakness EENTM: no symptoms reported Respiratory: no symptoms reported Cardiovascular: no symptoms reported Gastrointestinal: diarrhea Genitourinary: no symptoms reported Musculoskeletal: no symptoms reported Skin: no symptoms reported Psychiatric/Neurological: No Symptoms Reported All Other Systems Reviewed Negative Unless Noted: Yes Past Rgryzxb-Pxqwqv-Qrioza Hx Patient Social History 2nd Hand Smoke Exposure: No Recent Hopitalizations: No Immunizations Up To Date Date of Pneumonia Vaccine: May 01, 2015 Seasonal Allergies Seasonal Allergies: No Past Medical History Surgeries: Yes (BACK) Hysterectomy, Orthopedic Respiratory: No Cardiac: Yes High Cholesterol, Hypertension Neurological: No Reproductive Disorders: No Sexually Transmitted Disease: No HIV/AIDS: No Genitourinary: Yes Kidney Stones Gastrointestinal: Yes Gastroesophageal Reflux, Chronic Constipation, Chronic Diarrhea Musculoskeletal: Yes Arthritis, Chronic Back Pain Endocrine: Yes Diabetes, Non-Insulin dep HEENT: Yes (GLASSES) Loss of Vision: Denies Hearing Impairment: Denies Cancer: No Psychosocial: Yes Anxiety, Depression Integumentary: No Blood Disorders: No Adverse Reaction/Blood Tranf: No (N/A) Family Medical History No Pertinent Family Hx Physical Exam Vital Signs Capillary Refill : Height, Weight, BMI Height: 5'2.00" Weight: 150lbs. 0.0oz. [id number]; 28.39 BMI Method: General Appearance: No Apparent Distress, WD/WN Eyes: Bilateral Eye Normal Inspection, Bilateral Eye PERRL, Bilateral Eye EOMI HEENT: PERRL/EOMI Neck: Normal Inspection Respiratory: Lungs Clear, Normal Breath Sounds, No Accessory Muscle Use, No Respiratory Distress Cardiovascular: Regular Rate, Rhythm Gastrointestinal: Normal Bowel Sounds (Normal to hyperactive bowel sounds), Soft, Tenderness (Minimal epigastric tenderness to palpation) Extremity: Normal Inspection, Normal Range of Motion, Non Tender, No Calf Tenderness Neurologic/Psychiatric: Alert, Oriented x3, No Motor/Sensory Deficits Skin: Normal Color, Warm/Dry Progress/Results/Core Measures Suspected Sepsis SIRS Temperature: Pulse: Respiratory Rate: Laboratory Tests 12/13/20 17:00: White Blood Count 9.4 Blood Pressure / Mean: Laboratory Tests 12/13/20 17:00: Creatinine 1.04, Platelet Count 320 Results/Orders Lab Results Laboratory Tests Test 12/13/20 17:00 Range/Units White Blood Count 9.4 4.3-11.0 10^3/uL Red Blood Count 4.67 3.80-5.11 10^6/uL Hemoglobin 13.1 11.5-16.0 g/dL Hematocrit 41 35-52 % Mean Corpuscular Volume 88 80-99 fL Mean Corpuscular Hemoglobin 28 25-34 pg Mean Corpuscular Hemoglobin Concent 32 32-36 g/dL Red Cell Distribution Width 14.0 10.0-14.5 % Platelet Count 320 130-400 10^3/uL Mean Platelet Volume 11.4 9.0-12.2 fL Immature Granulocyte % (Auto) 0 % Neutrophils (%) (Auto) 64 42-75 % Lymphocytes (%) (Auto) 17 12-44 % Monocytes (%) (Auto) 14 H 0-12 % Eosinophils (%) (Auto) 4 0-10 % Basophils (%) (Auto) 1 0-10 % Neutrophils # (Auto) 6.0 1.8-7.8 10^3/uL Lymphocytes # (Auto) 1.6 1.0-4.0 10^3/uL Monocytes # (Auto) 1.3 H 0.0-1.0 10^3/uL Eosinophils # (Auto) 0.4 H 0.0-0.3 10^3/uL Basophils # (Auto) 0.1 0.0-0.1 10^3/uL Immature Granulocyte # (Auto) 0.0 0.0-0.1 10^3/uL Sodium Level 136 135-145 MMOL/L Potassium Level 3.8 3.6-5.0 MMOL/L Chloride Level 101 98-107 MMOL/L Carbon Dioxide Level 23 21-32 MMOL/L Anion Gap 12 5-14 MMOL/L Blood Urea Nitrogen 14 7-18 MG/DL Creatinine 1.04 0.60-1.30 MG/DL Estimat Glomerular Filtration Rate 52 BUN/Creatinine Ratio 13 Glucose Level 211 H 70-105 MG/DL Calcium Level 9.7 8.5-10.1 MG/DL My Orders Orders - CEM VASQUEZ MD Cbc With Automated Diff (12/13/20 17:06) Basic Metabolic Panel (12/13/20 17:06) Chest 1 View, Ap/Pa Only (12/13/20 17:06) Ns Iv 1000 Ml (Sodium Chloride 0.9%) (12/13/20 17:15) Vital Signs/I&O Capillary Refill : Progress Note : Time: 17:52 Progress Note Patient seen and evaluated, 75-year-old fighting C. difficile for the last 3 weeks. On vancomycin daily 4 times a day. Patient evaluation today includes a CBC, BM 7 as well as a chest x-ray. Patient's labs have been reviewed and are unremarkable. Normal electrolytes. Normal chest x-ray. Normal vital signs. Patient is treated in the emergency room with 1 L of normal saline. She is counseled on fluid replacement including Pedialyte Pedialyte mixed with Sprite, Pedialyte mixed with juice. She verbalizes understanding. Patient at this time looks well, nontoxic. recommendations for home. Patient is comfortable with this. She is advised to keep her scheduled follow-up with Dr. Arias and her primary care physician. She is given good return precautions. She verbalized understanding. All questions are sought and answered. Patient is stable for discharge. Diagnostic Imaging Diagonstic Imaging: Xray Plain Films/CT/US/NM/MRI: chest Comments [facility], [place] NAME: DAVID [facility]LEXANDRA [facility] REC#: [id number] PT STATUS: REG ER : 1945 PHYSICIAN: CEM VASQUEZ MD ADMIT DATE: 12/13/20/ER Draft Date of Exam:12/13/20 CHEST 1 VIEW, AP/PA ONLY INDICATION: Cough, congestion and fever. COMPARISON: 06/24/2016. FINDINGS: Some minimal left greater than right linear perihilar scarring, stable from the comparison. No pneumonia, failure, effusion or pneumothorax. Progressive chronic degenerative changes to the right greater than left shoulder and postsurgical changes to the visualized lower thoracic and lumbar spine. No acute appearing abnormality. IMPRESSION: Stable chronic findings in the lungs, progressive osteoarthritis. Dictated on workstation # [id number] Dict: 12/13/201741 Trans: 12/13/201747 PJE [id number] Interpreted by: EBENEZER HESS Electronically signed by: Departure Impression Primary Impression: C. difficile colitis Disposition: HOME, SELF-CARE Condition: Stable Departure-Patient Inst. Decision time for Depature: 17:54 Referrals: MAXIMILIANO HARRIS MD (PCP) Primary Care Physician IVA KEMP APRN (Family) Primary Care Physician Patient Instructions: Antibiotic-Associated Diarrhea (DC) Add. Discharge Instructions: Please drink plenty of fluids to keep well-hydrated. You can drink Pedialyte, Pedialyte mixed with Sprite or juice to help this. Continue your vancomycin daily as prescribed by Dr. Arias. Return to the emergency room if you have worsening diarrhea, fever over 100.4, worsening shortness of breath or any other emergent concerning symptoms. CEM VASQUEZ MD Dec 13, 2020 16:54
[2020-12-13] MEDS ORDERED: NS IV 1000 ML 1,000 ML IV SCH (17:15)
[2020-12-13 17:16] LABS: BASOPHILS # (AUTO) 0.1 10^3/uL (0.0-0.1); BASOPHILS % (AUTO) 1 % (0-10); EOSINOPHILS # (AUTO) 0.4 10^3/uL (0.0-0.3); EOSINOPHILS % (AUTO) 4 % (0-10); HEMATOCRIT 41 % (35-52); HEMOGLOBIN 13.1 g/dL (11.5-16.0); LYMPHOCYTES # (AUTO) 1.6 10^3/uL (1.0-4.0); LYMPHOCYTES % (AUTO) 17 % (12-44); MEAN CORPUSCULAR HEMOGLOBIN 28 pg (25-34); MEAN CORPUSCULAR HGB CONC 32 g/dL (32-36); MEAN CORPUSCULAR VOLUME 88 fL (80-99); MEAN PLATELET VOLUME 11.4 fL (9.0-12.2); MONOCYTES # (AUTO) 1.3 10^3/uL (0.0-1.0); MONOCYTES % (AUTO) 14 % (0-12); NEUTROPHILS % (AUTO) 64 % (42-75); PLATELET COUNT 320 10^3/uL (130-400); WHITE BLOOD COUNT 9.4 10^3/uL (4.3-11.0)
[2020-12-13 17:26] LABS: CALCIUM 9.7 MG/DL (8.5-10.1); CREATININE SERUM 1.04 MG/DL (0.60-1.30); POTASSIUM 3.8 MMOL/L (3.6-5.0)
--- NOTE | 2020-12-13 17:49 | Diagnostic Imaging Report ---
INDICATION: Cough, congestion and fever. COMPARISON: 06/24/2016. FINDINGS: Some minimal left greater than right linear perihilar scarring, stable from the comparison. No pneumonia, failure, effusion or pneumothorax. Progressive chronic degenerative changes to the right greater than left shoulder and postsurgical changes to the visualized lower thoracic and lumbar spine. No acute appearing abnormality. IMPRESSION: Stable chronic findings in the lungs, progressive osteoarthritis. Dictated by: Dictated on workstation # [id number]
[2020-12-13 18:20] VITALS: BP 143/86
== END 2020-12-13 18:20 | disposition home or self-care (01) ==
LOC: EDUNIT# 16:26 → ER 16:27
DX: K52.89 Other specified noninfective gastroenteritis and colitis (principal); I10 Essential (primary) hypertension; E78.00 Pure hypercholesterolemia, unspecified; K21.9 Gastro-esophageal reflux disease without esophagitis; F32.9 Major depressive disorder, single episode, unspecified; F41.9 Anxiety disorder, unspecified; E11.9 Type 2 diabetes mellitus without complications; Z91.041 Radiographic dye allergy status; Z88.5 Allergy status to narcotic agent; Z88.1 Allergy status to other antibiotic agents; Z88.8 Allergy status to other drugs, medicaments and biological substances; Z79.84 Long term (current) use of oral hypoglycemic drugs
CPT/HCPCS: 36415; 71045; 80048; 85025; 99281

== ENCOUNTER → 2021-01-14 | Outpatient (CLI) | payer MEDICARE, MEDICAID ==
[2021-01-14 12:55] LABS: BASOPHILS # (AUTO) 0.1 10^3/uL (0.0-0.1); BASOPHILS % (AUTO) 2 % (0-10); EOSINOPHILS # (AUTO) 0.2 10^3/uL (0.0-0.3); EOSINOPHILS % (AUTO) 3 % (0-10); HEMATOCRIT 42 % (35-52); HEMOGLOBIN 13.6 g/dL (11.5-16.0); LYMPHOCYTES # (AUTO) 1.8 10^3/uL (1.0-4.0); LYMPHOCYTES % (AUTO) 24 % (12-44); MEAN CORPUSCULAR HEMOGLOBIN 28 pg (25-34); MEAN CORPUSCULAR HGB CONC 32 g/dL (32-36); MEAN CORPUSCULAR VOLUME 88 fL (80-99); MEAN PLATELET VOLUME 11.4 fL (9.0-12.2); MONOCYTES # (AUTO) 0.8 10^3/uL (0.0-1.0); MONOCYTES % (AUTO) 10 % (0-12); NEUTROPHILS # (AUTO) 4.7 10^3/uL (1.8-7.8); NEUTROPHILS % (AUTO) 61 % (42-75); PLATELET COUNT 296 10^3/uL (130-400); WHITE BLOOD COUNT 7.6 10^3/uL (4.3-11.0)
[2021-01-14 13:13] LABS: ALBUMIN 4.1 GM/DL (3.2-4.5); BILIRUBIN,TOTAL 0.3 MG/DL (0.1-1.0); CALCIUM 10.2 MG/DL (8.5-10.1); CREATININE SERUM 0.95 MG/DL (0.60-1.30); MAGNESIUM 1.7 MG/DL (1.6-2.4); POTASSIUM 3.8 MMOL/L (3.6-5.0); TOTAL PROTEIN 7.7 GM/DL (6.4-8.2)
--- NOTE | 2021-01-14 15:35 | Diagnostic Imaging Report ---
PROCEDURE: CT abdomen and pelvis without contrast. TECHNIQUE: Multiple contiguous axial images were obtained through the abdomen and pelvis without the use of intravenous contrast. Auto Exposure Controls were utilized during the CT exam to meet ALARA standards for radiation dose reduction. INDICATION: Abdominal pain. COMPARISON: 09/26/2019 FINDINGS: Included portions of lung bases are clear. CT ABDOMEN: Normal appendix cannot be adequately identified, but there is no pericecal inflammation. Small bowel loops are nondistended. There is scattered colonic diverticulosis, but no CT evidence of acute diverticulitis. Kidneys, adrenal glands, spleen, pancreas, and liver have an unremarkable noncontrast CT appearance. There is no loculated fluid collection, free fluid or free air within the abdomen. No abnormal mesenteric or retroperitoneal adenopathy is seen. Osseous structures show age-related degenerative changes and postsurgical changes of prior thoracolumbar fusion. There is lbpy-qn-yeggndes scattered calcified aortic atherosclerosis. CT PELVIS: Urinary bladder is unopacified. No calculi are seen within urinary bladder. There is no loculated fluid collection, free fluid or free air within the pelvis. No abnormal lymph nodes are identified. Osseous structures show no acute abnormalities. IMPRESSION: 1. No acute abnormality is seen within the abdomen or pelvis. 2. Colonic diverticulosis, but no CT evidence of acute diverticulitis. Dictated by: Dictated on workstation # [id number]
== END ==
LOC: LAB 11:42
PROVIDERS: ATTEND Nurse Practitioner
DX: K57.30 Diverticulosis of large intestine without perforation or abscess without bleeding (principal)
CPT/HCPCS: 36415; 74176; 80053; 83735; 85025

== ENCOUNTER → 2021-03-11 | Outpatient (CLI) | payer MEDICARE, MEDICAID ==
--- NOTE | 2021-03-11 10:01 | Diagnostic Imaging Report ---
INDICATION: Postmenopausal screening COMPARISON: Baseline FINDINGS: AP Spine L1-L4: [BMD (g/cm2): NA] [T-Score: NA] [Z-Score: NA] [BMD Previous: NA] [BMD % Change: NA] LT Hip Neck: [BMD (g/cm2): 0.666] [T-Score: -2.7] [Z-Score: -0.8] LT Hip Total: [BMD (g/cm2):0.788] [T-Score:-1.7] [Z-Score: -0.1] [BMD Previous: NA] [BMD % Change: NA] RT Hip Neck: [BMD (g/cm2):0.817] [T-Score:-1.6] [Z-Score:0.2] RT Hip Total: [BMD (g/cm2):0.786] [T-score:-1.8] [Z-Score:-0.1] [BMD Previous:NA] [BMD % Change:NA] *Indicates significant change from prior examination based on 95% confidence level. World Health Organization criteria for BMD interpretation classify patients as Normal (T-score at or above -1.0), Osteopenic (T-score between -1.0 and -2.5) or Osteoporotic (T-score at or below -2.5). LIMITATIONS AND MODIFICATION: None. FRACTURE RISK (FRAX SCORE): The ten year probability of (%): Major Osteoporotic Fracture: [26.5] Hip Fracture: [8.6] IMPRESSION: 1. Osteoporosis. 2. Baseline examination. 3. See below National Osteoporosis Foundation guidelines on when to potentially initiate pharmacologic therapy. Based on the National Osteoporosis Foundation Guidelines, pharmacologic treatment should be initiated in any of the following, unless clinical conditions suggest otherwise: * Any patient with prior fragility fracture of the hip or vertebrae. A spine fracture indicates 5X risk for subsequent spine fracture and 2X risk for subsequent hip fracture. * Osteoporosis (T-score <-2.5). * Postmenopausal women and men age 50 and older with low bone mass/osteopenia (T-score between -1.0 and -2.5) by DXA and 10-year major osteoporotic fracture greater than 20% or a 10-year probability of hip fracture greater than 3%. These fracture risks are supplied above in the FRAX score, if applicable. * Clinician judgement and/or patient preferences may indicate treatment for people with 10-year fracture probabilities above or below these levels. Dictated by: Dictated on workstation # [id number]
== END ==
LOC: RAD 09:30
PROVIDERS: ATTEND Nurse Practitioner
DX: M81.0 Age-related osteoporosis without current pathological fracture (principal); Z78.0 Asymptomatic menopausal state
CPT/HCPCS: 77080

== ENCOUNTER → 2021-04-01 | Outpatient (CLI) | payer MEDICARE, MEDICAID | END | disposition home or self-care (01) | LOC: PREOP 05:42 | PROVIDERS: ATTEND Surgery | DX: Z01.818 Encounter for other preprocedural examination (principal) ==

== ENCOUNTER 2021-10-13 05:28 | Outpatient (RCR) | payer MEDICARE, MEDICAID ==
[~2021-10-13] VITALS: Ht 157.5 cm; Wt 69.5 kg
[~2021-10-13 05:28] MED LIST changes: +LISI5TAB20 PO
== END 2021-10-13 09:30 | disposition home or self-care (01) ==
LOC: PREOP 05:28
PROVIDERS: ATTEND Surgery
DX: Z01.812 Encounter for preprocedural laboratory examination (principal); K21.9 Gastro-esophageal reflux disease without esophagitis; R15.9 Full incontinence of feces; Z20.822 Contact with and (suspected) exposure to COVID-19
CPT/HCPCS: 87636

== ENCOUNTER 2021-10-14 08:17 | Day surgery (SDC) | payer MEDICARE, MEDICAID ==
[~2021-10-14] VITALS: Ht 157.5 cm; Wt 69.5 kg
[2021-10-14] MEDS ORDERED: LACTATED RINGERS 1,000 ML IV STA (08:19)
[2021-10-14] MEDS ORDERED: LACTATED RINGERS 1,000 ML IV ONE (08:20)
[2021-10-14] MEDS ORDERED: HURRICAINE EXT TUBE (BENZOCAINE) XX PRN (08:30)
[2021-10-14 08:35] VITALS: BP 123/71
--- NOTE | 2021-10-14 08:56 | Progress Note-Pre Operative ---
Pre-Operative Progress Note H&P Reviewed The H&P was reviewed, patient examined and no changes noted. Date Seen by Provider: Oct 14, 2021 Time Seen by Provider: 08:56 Date H&P Reviewed: Oct 14, 2021 Time H&P Reviewed: 08:56 Pre-Operative Diagnosis: incontinence of stool, gerd INGRID SANTACRUZ DO Oct 14, 2021 08:56
[2021-10-14] MEDS ORDERED: PROPOFOL INJECTION 50 ML IV ONE (09:22)
--- NOTE | 2021-10-14 10:01 | Progress Note-Post Operative ---
Post-Operative Progess Note Surgeon (s)/Chairman & Ceo (s) Surgeon INGRID SANTACRUZ DO Chairman & Ceo: N/A Pre-Operative Diagnosis incontinence of stool, gerd Post-Operative Diagnosis Hiatal hernia, colon polyps, diverticulosis, minimal prolapse Procedure & Operative Findings Date of Procedure 10/14/21 Procedure Performed/Findings EGD w/ biopsies Colonoscopy w/ hot bx polypectomy x 3 Anesthesia Type per blower and compressor assembler Estimated Blood Loss Estimated blood loss (mL): none Specimens/Packing Specimens Removed antrum, ge, colon polyps INGRID SANTACRUZ DO Oct 14, 2021 10:01
--- NOTE | 2021-10-14 10:03 | Discharge Inst-Simple/Standard ---
Discharge Inst-Standard Patient Instructions/Follow Up Plan of Care/Instructions/FU: 2 weeks Hugo Activity as Tolerated: Yes Discharge Diet: Regular Diet (high fiber) INGRID SANTACRUZ DO Oct 14, 2021 10:03
[2021-10-14 10:05] VITALS: BP 98/54
[2021-10-14 10:30] VITALS: BP 120/72
[2021-10-14 10:32] VITALS: BP 120/72
--- NOTE | 2021-10-14 14:17 | Anesthesia-General Post-Op ---
MAC Patient Condition Mental Status/LOC: Same as Preop Cardiovascular: Satisfactory Nausea/Vomiting: Absent Respiratory: Satisfactory Pain: Controlled Complications: Absent Post Op Complications Complications None Follow Up Care/Instructions Patient Instructions None needed. Anesthesiology Discharge Order Discharge Order Patient is doing well, no complaints, stable vital signs, no apparent adverse anesthesia problems. No complications reported per nursing. MARIANA KAUR CRNA Oct 14, 2021 14:17
--- NOTE | 2021-10-14 15:00 | OPERATIVE REPORT ---
DATE OF SERVICE: 10/14/2021 PREOPERATIVE DIAGNOSES: Incontinence of stool, gastroesophageal reflux disease. POSTOPERATIVE DIAGNOSES: Hiatal hernia, colon polyps, diverticulosis, minimal prolapse. SURGEON: Ingrid Arias DO ANESTHESIA: Per MARINE PAINTER. PROCEDURE: EGD with biopsies, colonoscopy with hot biopsy polypectomy x3. ESTIMATED BLOOD LOSS: None. COMPLICATIONS: None. INDICATIONS: The patient is a 76-year-old female with episodes of incontinence of stool and GERD symptoms. She understands risks and benefits of procedure and wished to proceed. Consent was signed in the chart. DESCRIPTION OF PROCEDURE: The patient was taken to the endoscopy suite, placed in left lateral recumbent position. Timeout was performed. Scope was inserted in mouth, down the esophagus, stomach and into the duodenum without difficulty. There were no polyps, masses or ulcerations within the duodenum. Scope was slowly retracted back into the stomach where it was further insufflated. Biopsy of the antrum was obtained. No polyps, masses or ulcerations. Scope was retroflexed noting hiatal hernia, no other pathology. Scope was returned to its normal position, slowly withdrawn to distal esophagus. Biopsy of the GE junction was obtained. Scope was slowly retracted back noting no other pathology. The patient tolerated the procedure well without any complications. Digital rectal exam was performed. Some very minimal prolapse present with hemorrhoidal disease. No palpable polyps, masses or ulcerations. Scope was inserted in the rectum and advanced all the way to cecum with minimal difficulty. Prep was adequate. Scope was slowly retracted back. No polyps, masses or ulcerations within the cecum. In the ascending colon, a small polyp was present, which hot biopsy polypectomy was performed. Scope was then continuously retracted back. No polyps, masses or ulcerations within the remainder of the ascending and transverse colon. In the descending, two colon polyps were present, which hot biopsy polypectomy was performed. Scope was then continuously retracted back. No polyps, masses or ulcerations within the sigmoid colon, but some minimal amount of diverticulosis present. Scope was continuously retracted back in the rectum, which was also retroflexed noting no other pathology except for the hemorrhoidal disease. Scope was returned to its normal position, slowly withdrawn until completely removed. The patient tolerated the procedure well without any complications. She was taken to recovery room in stable condition. RECOMMENDATIONS: The patient will have repeat colonoscopy in 5 years if benefits outweigh the risks. We will discuss with her about the very minimal prolapse, I do not think there is anything significant. We will consider pelvic floor therapy and would also consider opinion from colorectal surgery. Job ID: [id number] DocumentID: [id number] Dictated Date: 10/14/2021 10:08:16 Cmm Technician Date: 10/14/2021 14:59:03 Dictated By: INGRID ARIAS DO
== END 2021-10-14 10:49 | disposition home or self-care (01) ==
LOC: ENDO 08:17
PROVIDERS: ATTEND Surgery
DX: D12.2 Benign neoplasm of ascending colon (principal); D12.4 Benign neoplasm of descending colon; K57.30 Diverticulosis of large intestine without perforation or abscess without bleeding; K44.9 Diaphragmatic hernia without obstruction or gangrene; K21.9 Gastro-esophageal reflux disease without esophagitis; K64.8 Other hemorrhoids; I10 Essential (primary) hypertension; E11.40 Type 2 diabetes mellitus with diabetic neuropathy, unspecified; E78.00 Pure hypercholesterolemia, unspecified; F41.9 Anxiety disorder, unspecified; F32.A Depression, unspecified; I25.2 Old myocardial infarction; Z79.899 Other long term (current) drug therapy; Z79.84 Long term (current) use of oral hypoglycemic drugs
CPT/HCPCS: 88305

== ENCOUNTER 2022-07-23 18:19 | Emergency (ER) | payer MEDICARE, MEDICAID ==
[~2022-07-23] VITALS: Ht 157.8 cm; Wt 67.1 kg
[2022-07-23] MEDS ORDERED: morphine INJ 10 MG/ML 1ML (SYR OR VIAL) IVP STA ×2 (18:52→19:55)
--- NOTE | 2022-07-23 19:38 | Diagnostic Imaging Report ---
PROCEDURE: CT head and CT cervical spine without contrast. TECHNIQUE: Multiple contiguous axial images were obtained through the brain and cervical spine without the use of intravenous contrast. Sagittal and coronal reformations through the cervical spine were then performed. Auto Exposure Controls were utilized during the CT exam to meet ALARA standards for radiation dose reduction. INDICATION: Fall. Head and neck pain. COMPARISON: 11/24/2016. FINDINGS: CT head: No large acute territorial ischemia, mass, or hemorrhage. No midline shift or mass effect. The ventricles, cortical sulci, and basilar cisterns are patent and unremarkable. The calvarium is intact. The visualized paranasal sinuses are clear. CT cervical spine: No acute fracture or dislocation is seen in the cervical spine. No focal osseous lesions. Vertebral body heights are well-maintained. The craniocervical junction is well-maintained. Mild degenerative changes are seen in the cervical spine with disc osteophyte complexes and uncovertebral arthropathy. Soft tissues of the neck are unremarkable. The included lung apices are clear. IMPRESSION: 1. No hemorrhage or focal intra-axial mass. No CT evidence of large acute territorial ischemia. 2. No acute fracture or dislocation in the cervical spine. Dictated by: Dictated on workstation # [id number]
--- NOTE | 2022-07-23 19:40 | Diagnostic Imaging Report ---
PROCEDURE: CT chest without contrast. TECHNIQUE: Multiple contiguous axial images were obtained through the chest without the use of intravenous contrast. Auto Exposure Controls were utilized during the CT exam to meet ALARA standards for radiation dose reduction. INDICATION: Fall with dyspnea and possible aspiration. Lungs are generally clear apart from mild dependent atelectasis and/or scarring in the subpleural regions. Overall heart size is within normal limits. There is no significant pleural or pericardial fluid. There is mild mural thickening at the distal esophagus which could be related to gastroesophageal reflux. There are mildly displaced fractures involving the right 2nd through 7th ribs. There is no significant associated pleural fluid or thickening. Advanced degenerative findings are present within the shoulders. There is diffuse thoracic spondylosis with thoracolumbar spinal fusion present. IMPRESSION: Multiple right rib fractures involving 2nd through 7th ribs however no pneumothorax or significant hemothorax is identified. There is mural thickening at the distal esophagus possibly on the basis of gastroesophageal reflux. Dictated by: Dictated on workstation # [id number]
--- NOTE | 2022-07-23 19:41 | Diagnostic Imaging Report ---
PROCEDURE: CT thoracic and lumbar spine without contrast. TECHNIQUE: Multiple contiguous axial images were obtained through the thoracic and lumbar spine without the use of intravenous contrast. Sagittal and coronal reformations were then performed. All CT scans use one or more of the following dose optimizing techniques: automated exposure control, MA and/or KvP adjustment based on a patient size and exam type, or iterative reconstruction. INDICATION: Fall. Mid and lower back pain. COMPARISON: 01/14/2021. FINDINGS: No acute fracture or dislocation in the thoracic and lumbar spine. Posterior fusion changes are visualized from T11 to L4. No hardware fracture or loosening. There is generalized osteopenia. No focal osseous lesions are seen. No evidence of acute spinal canal stenosis. The included lungs are clear. The paraspinal soft tissues are unremarkable. IMPRESSION: 1. No acute fracture or dislocation in the thoracic and lumbar spine. 2. Stable posterior fusion from T11 to L4. No hardware fracture or loosening. 3. Generalized osteopenia. Dictated by: Dictated on workstation # [id number]
--- NOTE | 2022-07-23 19:42 | Diagnostic Imaging Report ---
CLINICAL HISTORY: Fall. Right shoulder pain. COMPARISON: None. TECHNIQUE: 3 views of the right shoulder. FINDINGS: There is no acute fracture or dislocation of the right shoulder. Advanced degenerative changes are seen in the right glenohumeral joint with bulky osteophytes, joint space loss, and subchondral sclerosis. Prominent ossified body is seen within the inferior aspect of the right glenohumeral joint. The right humeral head is high riding. The included right chest is clear. IMPRESSION: 1. No acute fracture or dislocation in the right shoulder. 2. 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 Dictated by: Dictated on workstation # [id number]
[2022-07-23] MEDS ORDERED: oxyCODONE/APAP 5/325MG (PERCOCET 5) TABLET PO ONE (20:00)
[2022-07-23] MEDS ORDERED: OXYC1TAB87 PO (20:04)
--- NOTE | 2022-07-23 20:05 | ED Fall/Injury ---
General Chief Complaint: Trauma-Non Activation Stated Complaint: FALL Nursing Triage Note: PT TO RM 2 BY WC WITH COMPLAINT OF FALL. STATES SHE WAS EATING AND FELT SOMETHING GET CAUGHT HER THROAT AND FELT SOA. STATES WENT OUTSIDE TO FIND NEIGHBOR TO CALL FOR HELP AND FELL AGAINST LIGHT POLE. PT DENIES LOC. STATES HIT HER HEAD. AND LEFT UPPER BACK. CRAWLED BACK INTO HER APPARTMENT AND CALLED HER GRANDDAUGHTER. PT IS ALERT AND ORIENTED AT TIME OF TRIAGE. DENIES TAKING BLOOD THINNERS. CCOLLAR PLACED. (RANDOLPH RUIZ APRN) History of Present Illness Date Seen by Provider: Jul 23, 2022 Time Seen by Provider: 18:35 Initial Comments Patient is a 77-year-old female who presents to the emergency department with right-sided shoulder and back pain after she fell and struck her back against a metal light pole. Patient states she was eating and felt like she had something that got caught in her throat causing her to be short of air. She states she "panicked" and while walking lost her balance and fell backwards striking a light pole. She denies any loss of consciousness. States she may have hit the back of her head. She is not on any anticoagulation at this time per her report. Patient is accompanied by her daughter. A c-collar was placed upon her arrival to triage due to the mechanism of injury. Patient denies any focal numbness/weakness or vision change. She states the pain in her right back is worse with deep inspiration, movement, or palpation. Occurred: just prior to arrival (RANDOLPH RUIZ APRN) Allergies and Home Medications Allergies Coded Allergies: Iodinated Contrast Media (Verified Allergy, Mild, HIVES, 06/18/20) amoxicillin (Verified Allergy, Mild, GI UPSET, 06/18/20) clavulanic acid (Verified Allergy, Mild, GI UPSET, 06/18/20) codeine (Verified Allergy, Mild, N/V, 06/18/20) metformin (Verified Allergy, Mild, GI UPSET, 06/18/20) Patient Home Medication List Home Medication List Reviewed: Yes (RANDOLPH RUIZ APRN) Alendronate Sodium (Alendronate Sodium) 70 Mg Tablet, 70 MG PO Mo, (Reported) Entered as Reported by: CHENTE BYRD on 06/24/16 0904 Atorvastatin Calcium (Atorvastatin Calcium) 10 Mg Tablet, 10 MG PO HS, (Reporte d) Entered as Reported by: MARTY GARCIA on 03/08/18 141 Calcium Carbonate (Calcium) 600 Mg Tablet, 600 MG PO DAILY, (Reported) Entered as Reported by: MARTY GARCIA on 06/18/20 110 Gabapentin (Gabapentin) 100 Mg Capsule, 100 MG PO DAILY, (Reported) Entered as Reported by: CHENTE BYRD on 06/24/16 09 Gabapentin (Gabapentin) 100 Mg Capsule, 200 MG PO HS, (Reported) Entered as Reported by: JOSE MASON on 10/09/21 141 Glimepiride (Glimepiride) 2 Mg Tablet, 2 MG PO BID, (Reported) Entered as Reported by: MARTY GARCIA on 06/18/201106 Linagliptin (Tradjenta) 5 Mg Tablet, 5 MG PO DAILY, (Reported) Entered as Reported by: MARTY GARCIA on 06/18/20 110 Lisinopril (Lisinopril) 5 Mg Tablet, 5 MG PO DAILY, (Reported) Entered as Reported by: JOSE MASON on 10/09/21 141 Metformin HCl (Metformin HCl) 500 Mg Tablet, 1,000 MG PO BID, (Reported) Entered as Reported by: MARTY GARCIA on 03/08/18 141 Multivitamin (Multivitamin) 1 Each Tablet, 1 EACH PO DAILY, (Reported) Entered as Reported by: MARTY GARCIA on 06/18/20 110 Oxycodone HCl/Acetaminophen (Percocet 5-325 mg Tablet) 1 Each Tablet, 1 TAB PO Q4H PRN for PAIN-MODERATE (5-7) Prescribed by: Randolph Ruiz on 07/23/222004 Pantoprazole Sodium (Pantoprazole Sodium) 20 Mg Tablet.dr, 20 MG PO DAILY, (Reported) Entered as Reported by: CHENTE BYRD on 06/24/16 09 Sertraline HCl (Sertraline HCl) 50 Mg Tablet, 50 MG PO DAILY, (Reported) Entered as Reported by: MARTY GARCIA on 06/18/20 110 Review of Systems Review of Systems Constitutional: no symptoms reported Eyes: No Symptoms Reported Ears, Nose, Mouth, Throat: no symptoms reported Respiratory: no symptoms reported Cardiovascular: no symptoms reported Gastrointestinal: no symptoms reported Genitourinary: no symptoms reported Musculoskeletal: see HPI, back pain (RANDOLPH RUIZ APRN) Past Zzydrec-Utaszp-Kipiyh Hx Patient Social History Tobacco Use?: No Use of E-Cig and/or Vaping dev: No Substance use?: No Alcohol Use?: No Pt feels they are or have been: No (RANDOLPH RUIZ APRN) Immunizations Up To Date First/Initial COVID19 Vaccinat: NO Second COVID19 Vaccination Joseph: NO Third COVID19 Vaccination Date: NO (RANDOLPH RUIZ APRN) Seasonal Allergies Seasonal Allergies: No (RANDOLPH RUIZ APRN) Past Medical History Surgeries: Yes (BACK) Hysterectomy, Orthopedic Respiratory: No Cardiac: Yes High Cholesterol, Hypertension Neurological: No Reproductive Disorders: No WAREHOUSE PERSON History: Hysterectomy Sexually Transmitted Disease: No HIV/AIDS: No Genitourinary: Yes Kidney Stones, UTI-Chronic Gastrointestinal: Yes Colitis, Gastroesophageal Reflux, Chronic Constipation, Chronic Diarrhea, C-Diff Musculoskeletal: Yes Arthritis, Chronic Back Pain Endocrine: Yes Diabetes, Non-Insulin dep HEENT: Yes (GLASSES) Loss of Vision: Denies Hearing Impairment: Denies Cancer: No Psychosocial: Yes Anxiety, Depression Integumentary: No Blood Disorders: No Adverse Reaction/Blood Tranf: No (N/A) (RANDOLPH RUIZ APRN) Family Medical History No Pertinent Family Hx (RANDOLPH RUIZ APRN) Physical Exam Vital Signs Vital Signs - First Documented 07/23/22 18:35 Temp 36.3 Pulse 84 Resp 16 B/P (MAP) 106/57 (73) Pulse Ox 94 O2 Delivery Room Air (GELACIO LINDER MD) Vital Signs Capillary Refill : Less Than 3 Seconds (RANDOLPH RUIZ APRN) Height, Weight, BMI Height: 5'2.00" Weight: 150lbs. 0.0oz. [id number]; 26.00 BMI Method: General Appearance: WD/WN, no apparent distress HEENT: PERRL/EOMI, normal ENT inspection, TMs normal, pharynx normal Neck: non-tender, full range of motion, supple, normal inspection Cardiovascular: regular rate, rhythm Respiratory: chest non-tender, lungs clear, normal breath sounds, no respiratory distress Gastrointestinal: normal bowel sounds, non tender, soft Neurologic/Psychiatric: no motor/sensory deficits, alert, normal mood/affect, oriented x 3 Skin: normal color, warm/dry Tenderness to palpation noted along the right thoracic region; no bony step-off noted (RANDOLPH RUIZ APRN) [place] Coma Score Best Eye Response: (4) Open Spontaneously Best Verbal Response: (5) Oriented Best Motor Response: (6) Obeys Commands [place] Total: 15 (RANDOLPH RUIZ APRN) Progress/Results/Core Measures Results/Orders Vital Signs/I&O 07/23/22 07/23/22 07/23/22 18:35 20:16 20:20 Temp 36.3 37.0 Pulse 84 85 Resp 16 16 B/P (MAP) 106/57 (73) 115/57 Pulse Ox 94 91 93 O2 Delivery Room Air Room Air Room Air (GELACIO LINDER MD) Blood Pressure Mean: 73 Progress Progress Note : Progress Note Patient is nontoxic and well-hydrated on exam. She does appear uncomfortable. Vital signs are reassuring. CT of the head and C-spine is acutely negative. C- collar was successfully cleared. CT of the thoracic and lumbar spine revealed no acute vertebral fracture or other concerning findings. Chest CT notable for fractures of the second through seventh posterior right ribs. No other concurrent injuries noted to the lungs. Will discharge home with analgesia and recommendations for deep breathing and splinting when coughing with a pillow. Discussed signs of development of pneumonia given patient may be taking more shallow breaths than normal. Follow-up with PCP. Return precautions for urgent symptomology discussed. Patient verbalized understanding. (RANDOLPH RUIZ APRN) Departure Impression Primary Impression: Multiple fractures of ribs, right side, initial encounter for closed fracture Disposition: 01 HOME, SELF-CARE Condition: Stable Departure-Patient Inst. Decision time for Depature: 20:00 (RANDOLPH RUIZ APRN) Referrals: LENIN ROSARIO DO (PCP/Family) Primary Care Physician Patient Instructions: Rib Fractures in Adults Scripts Oxycodone HCl/Acetaminophen (Percocet 5-325 mg Tablet) 1 Each Tablet 1 TAB PO Q4H PRN for PAIN-MODERATE (5-7) MDD 6 TABS for 5 Days, #20 TAB 0 Refills Prov: RANDOLPH RUIZ APRN 07/23/22 ATTENDING PHYSICIAN NOTE: I was physically present as attending physician in the emergency department during the care of this patient, but I was not directly involved in the decision making or delivery of care for this patient. (GELACIO LINDER MD) RANDOLPH RUIZ APRN Jul 23, 2022 20:05 GELACIO LINDER MD Jul 26, 2022 02:13
[2022-07-23] MEDS ORDERED: RX-OXYCODONE/APAP 5-325 MG #4 TAB PK PO PRN (20:15)
[2022-07-23 20:20] VITALS: BP 115/57
== END 2022-07-23 20:28 | disposition home or self-care (01) ==
LOC: EDUNIT# 18:19 → ER 18:21
DX: S22.41XA Multiple fractures of ribs, right side, initial encounter for closed fracture (principal); M25.511 Pain in right shoulder; Z91.81 History of falling; W18.30XA Fall on same level, unspecified, initial encounter; W22.09XA Striking against other stationary object, initial encounter
CPT/HCPCS: 70450; 71250; 72125; 72128; 72131; 73030; 94664

== ENCOUNTER 2022-08-20 12:41 | Outpatient (CLI) | payer MEDICARE, MEDICAID ==
[~2022-08-20] VITALS: Ht 157.5 cm; Wt 68.7 kg
[~2022-08-20 12:41] MED LIST changes: +OXYC1TAB87 PO
[2022-08-25] MEDS ORDERED: DAPA5TAB PO (12:55)
[2022-08-25] MEDS ORDERED: ATOR20TA66 PO (12:55)
[2022-08-25] MEDS ORDERED: PANT40TA52 PO (12:55)
[2022-08-25] MEDS ORDERED: SERT-414 PO (12:55)
[2022-08-25] MEDS ORDERED: METF-478 PO (12:55)
== END 2022-08-25 12:59 | disposition home or self-care (01) ==
LOC: PREOP 12:41
PROVIDERS: ATTEND Surgery
DX: Z01.818 Encounter for other preprocedural examination (principal)

== ENCOUNTER 2022-09-02 09:25 | Day surgery (SDC) | payer MEDICARE, MEDICAID ==
[~2022-09-02] VITALS: Ht 158 cm; Wt 68.7 kg
[~2022-09-02 09:25] MED LIST changes: +ATOR20TA66 PO; +DAPA5TAB PO; +METF-478 PO; +PANT40TA52 PO; +SERT-414 PO
[2022-09-02] MEDS ORDERED: LACTATED RINGERS 1,000 ML IV STA (09:28)
[2022-09-02] MEDS ORDERED: LIDOCAINE JELLY 2% 6 ML SYRINGE MM PRN (09:30)
[2022-09-02] MEDS ORDERED: HURRICAINE EXT TUBE (BENZOCAINE) XX PRN (09:30)
[2022-09-02 09:40] VITALS: BP 137/71
[2022-09-02] MEDS ORDERED: LACTATED RINGERS 1,000 ML IV ONE (09:44)
[2022-09-02] MEDS ORDERED: HURRICAINE EXT TUBE (BENZOCAINE) ONE (09:44)
[2022-09-02] MEDS ORDERED: MIDAZOLAM 2 MG/2 ML (VERSED) VIAL ONE (10:50)
[2022-09-02] MEDS ORDERED: PROPOFOL INJECTION 50 ML IV ONE (10:50)
[2022-09-02] MEDS ORDERED: LIDOCAINE JELLY 2% 6 ML SYRINGE ONE (10:55)
--- NOTE | 2022-09-02 10:56 | Progress Note-Pre Operative ---
Pre-Operative Progress Note Date of Available H&P: Sep 02, 2022 Date H&P Reviewed: Sep 02, 2022 Time H&P Reviewed: 10:00 History & Physical: No changes noted Pre-Operative Diagnosis: dysphagia, GERD BRYANT LUCAS MD Sep 02, 2022 10:56
--- NOTE | 2022-09-02 10:57 | Discharge Inst-Surgical ---
D/C Lap Instructions-SHAYY Follow Up Activity as tolerated High Fiber Diet 25g or more per day Avoid Alcohol, Caffeine, Spicy [place] and Acid foods. Drink 64 fluid oz or more of fluids per day. Symptoms to Report: Fever over 101 degree F, Nausea/Vomiting If any problems/questions: Contact your physician or go to Emergency Room BRYANT LUCAS MD Sep 02, 2022 10:57
[2022-09-02] MEDS ORDERED: ONDANSETRON 4 MG (ZOFRAN) ORAL DISSOLVE TAB PO PRN (11:00)
[2022-09-02] MEDS ORDERED: ONDANSETRON 4 MG/2 ML (SDV) Z0FRAN IVP PRN (11:00)
[2022-09-02 11:25] VITALS: BP 153/69
[2022-09-02 11:30] VITALS: BP 129/58
[2022-09-02 11:35] VITALS: BP 116/60
--- NOTE | 2022-09-02 11:39 | Progress Note-Post Operative ---
Post-Operative Progess Note Surgeon (s)/Nurse Charge Rn (s) Surgeon BRYANT LUCAS MD Nurse Charge Rn: none Pre-Operative Diagnosis dysphagia, GERD Post-Operative Diagnosis reflux esophagitis(grade B-C), mild dist esoph stricture, intact wrap with sliding component still present, mild-mod gastritis. Procedure & Operative Findings Date of Procedure 09/02/22 Procedure Performed/Findings EGD with bx and balloon dilatation. Anesthesia Type mac Estimated Blood Loss Estimated blood loss (mL): minimal Specimens/Packing Specimens Removed ge jxn, antrum BRYANT LUCAS MD Sep 02, 2022 11:39
[2022-09-02 11:55] VITALS: BP 116/60
[2022-09-02 12:00] VITALS: BP 116/60
--- NOTE | 2022-09-02 14:23 | Anesthesia-General Post-Op ---
MAC Patient Condition Mental Status/LOC: Same as Preop Cardiovascular: Satisfactory Nausea/Vomiting: Absent Respiratory: Satisfactory Pain: Controlled Complications: Absent Post Op Complications Complications None Follow Up Care/Instructions Patient Instructions None needed. Anesthesiology Discharge Order Discharge Order Patient is doing well, no complaints, stable vital signs, no apparent adverse anesthesia problems. No complications reported per nursing. RAMON ROJAS CRNA Sep 02, 2022 14:23
--- NOTE | 2022-09-02 21:10 | OPERATIVE REPORT ---
DATE OF SERVICE: 09/02/2022 ATTENDING PRIMARY CARE PHYSICIAN: Dr. John Paul Martines. PREOPERATIVE DIAGNOSES: History of gastroesophageal reflux disease and hiatal hernia with dysphagia. POSTOPERATIVE DIAGNOSES: Reflux esophagitis between Clark grade B and C with a distal esophageal stricture. No recurrent hiatal hernia with intact previous hiatal hernia repair, mild to moderate gastritis. No distal obstructions. PROCEDURE: EGD with biopsy and balloon dilatation. SURGEON: Bryant Lucas MD ANESTHESIA: Monitored anesthesia care. ESTIMATED BLOOD LOSS: Minimal. FINDINGS:. Reflux esophagitis between Clark grade B and C with a distal esophageal stricture. No recurrent hiatal hernia with intact previous hiatal hernia repair, mild to moderate gastritis. No distal obstructions. DISPOSITION: The patient tolerated the procedure well. INDICATIONS: The patient is a 77-year-old female referred over to us for dysphagia. 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 She then underwent esophageal manometry studies and this was followed by a laparoscopic hiatal hernia repair with a 180-degree mesh placement at [facility] in 04/2022. She states that approximately 1 month later, she accidentally fell and did fractured a few ribs on the right side. She states that she has developed dysphagia, which is usually worse with dry breads and crackers as well as lean meats and raw vegetables. DESCRIPTION OF PROCEDURE: The patient was brought to the endoscopy suite and laid in the left lateral decubitus position. After adequate IV pain, sedative medications and monitored anesthesia care, the mouthpiece was applied. The endoscope was placed in the mouth to visualize the pharynx hypopharyngeal region. Vocal cords, epiglottis and vallecula identified and appeared to be normal. The endoscope was then gently intubated at the esophageal opening. Esophagus was insufflated. The endoscope was then advanced into the first, second and third portion of the esophagus. At the level of the GE junction, this was slightly intrathoracic. There was a reflux esophagitis, Clark between grade B and C as well as a mild distal esophageal stricture. Biopsy was taken with forceps and visualization with good hemostasis. The endoscope was then advanced into the stomach. The endoscope was retroflexed, visualizing normal size of the esophageal hiatus and no recurrent hiatal hernia. There was movement of the stomach into the mediastinum consistent with a sliding component of the hiatal hernia still present. There was a hfha-cx-lybxejed gastritis. No formal ulcerations, polyps, or any neoplasms. A biopsy was taken of the antrum to rule out H. pylori with visualization of good hemostasis. The endoscope was then advanced through the pylorus and the first and second portion of the duodenum, which appeared normal with no distal obstructions. The balloon was then placed in the stomach and pulled back to the area of the stricture. We then proceeded in a graded stepwise fashion from 2.4 and eventually 5.75 atmospheres of pressure with moderate resistance or approximately 19.5 mm luminal diameter with moderate resistance and left this in place for approximately 60 seconds. The balloon was then desufflated and removed with visualization with good hemostasis as well as no mucosal tears. Endoscope was then slowly withdrawn while taking second look and suctioning all residual air with no additional findings. The patient tolerated the procedure well. We will recommend the necessary lifestyle and dietary accommodations including small more frequent meals, avoiding eating at night as well as head elevation while lying supine as well as avoidance of acidogenic foods including caffeinated beverages, spicy, greasy and acidic foods and to continue to take her Protonix. Dysphagia after hiatal hernia repair, especially with mesh is very common and this could be due to the scar tissue fibers that eventually developed within the region of the previous repair. However, this could also be due to the irritation from acid at the GE junction before the surgery was performed and in this case, we feel that this was likely due to a Schatzki's ring and reflux esophagitis that had likely occurred before the surgery. Also in this type of situation, there tends to be a reoccurrence of the stricture and we will have her follow up as needed for repeat dilatation as more scar tissue is laid down over time. Job ID: [id number] DocumentID: [id number] Dictated Date: 09/02/2022 11:36:04 Radio Frequency Technician Date: 09/02/2022 21:08:00 Dictated By: BRYANT LUCAS MD [facility]ITALRanulfo
== END 2022-09-02 12:02 | disposition home or self-care (01) ==
LOC: ENDO 09:25
PROVIDERS: ATTEND Surgery
DX: K21.00 Gastro-esophageal reflux disease with esophagitis, without bleeding (principal); K22.2 Esophageal obstruction; K29.50 Unspecified chronic gastritis without bleeding; E11.40 Type 2 diabetes mellitus with diabetic neuropathy, unspecified; Z79.899 Other long term (current) drug therapy; Z87.19 Personal history of other diseases of the digestive system; Z79.84 Long term (current) use of oral hypoglycemic drugs; Z28.310 Unvaccinated for COVID-19